=== PATIENT | male | born 1955 | race Caucasian/White ===

== ENCOUNTER 2021-11-06 18:47 | Emergency (ER) | payer OTHER, MEDICAID ==
[~2021-11-06] VITALS: Ht 167.6 cm; Wt 77.1 kg
[2021-11-06 18:50] VITALS: BP 137/82
--- NOTE | 2021-11-06 18:50 | NUR ---
PT PETER JEROME, TO 02. Addendum: 11/06/21 at 1855 by MATTHIAS ALS NOT PETER
[2021-11-06] MEDS ORDERED: NACL 0.9% 1,000 ML IV ONE (19:05)
--- NOTE | 2021-11-06 19:20 | NUR ---
Patient BIB by PETER. C/O Alcohol intoxication x today. Patient reported, was drinking 3 cans of beer today, felt weakness. Hx Alcoholic, HTN. A/O,X4, general weakness, shakiness bileral hands, place patient on salt lifter and pulse ox.
--- NOTE | 2021-11-06 19:23 | NUR ---
Dr. Adler examining patient.
--- NOTE | 2021-11-06 19:32 | NUR ---
Urine sample collected and sent to lab.
[2021-11-06 20:25] LABS: BARBITURATE, URINE NEGATIVE ng/ml (NEG <=200); BENZODIAZEPINE, URINE NEGATIVE ng/mL (NEG <=200); CANNABINOID, URINE NEGATIVE ng/mL (NEG <=50); COCAINE, URINE NEGATIVE ng/mL (NEG <=300); OPIATE, URINE NEGATIVE ng/mL (NEG <=2000); PHENCYCLIDINE SCREEN,URINE NEGATIVE ng/mL (NEG <=25)
[2021-11-06 20:30] LABS: BASOPHILS % (AUTO) 0.5 % (0.0-2.0); EOSINOPHILS # (AUTO) 0.1 K/uL (0-0.4); EOSINOPHILS % (AUTO) 3.2 % (0.0-4.0); HEMATOCRIT 32.4 % (36-52); HEMOGLOBIN 10.6 g/dL (12.0-18.0); LYMPHOCYTES # (AUTO) 2.4 K/uL (2.0-11.5); LYMPHOCYTES % (AUTO) 53.2 % (20.5-51.1); MEAN CORPUSCULAR HEMOGLOBIN 30 pg (27-31); MEAN CORPUSCULAR HGB CONC 33 g/dL (33-37); MEAN CORPUSCULAR VOLUME 90.7 fL (80-94); MONOCYTES # (AUTO) 0.4 K/uL (0.8-1.0); MONOCYTES % (AUTO) 8.1 % (1.7-9.3); NEUTROPHILS # (AUTO) 1.6 K/uL (1.8-7.7); PLATELET COUNT (AUTO) 75 K/uL (140-450); RED BLOOD CELL COUNT(AUTO) 3.58 MIL/uL (4.20-6.10); RED CELL DISTRIBUTION WIDTH 19.7 % (11.6-13.7); WHITE BLOOD COUNT (AUTO) 4.4 K/uL (4.8-10.8)
[2021-11-06 21:07] LABS: ALBUMIN 3.3 g/dL (3.4-5.0); ANION GAP 12.3 (8-16); ASPARTATE AMINOTRANSFERASE 58 U/L (15-37); CARBON DIOXIDE 25.3 mmol/L (21-32); CHLORIDE 108 mmol/L (98-107); CREATININE 0.8 mg/dL (0.6-1.3); GFR ARICAN-AMERICAN 125 mL/min (>90); GLUCOSE 105 mg/dL (74-106); POTASSIUM 3.6 mmol/L (3.5-5.1); SODIUM SERUM 142 mmol/L (136-145); TOTAL BILIRUBIN 0.4 mg/dL (0.0-1.0); UREA NITROGEN, BLOOD 12 mg/dL (7-18)
[2021-11-06 21:08] LABS: SALICYLATE < 2.8 mg/dL (2.8-20.0)
[2021-11-06 21:09] LABS: ACETAMINOPHEN < 0.5 ug/ml (10-30)
[2021-11-06] MEDS ORDERED: FOLIC ACID 5 MG/ML SYR IM ONE (21:25)
[2021-11-06] MEDS ORDERED: THIAMINE 200 MG/2 ML VIAL IM ONE (21:25)
[2021-11-06] MEDS ORDERED: MAG SULF 2000 MG/WATER PREMIX 50 ML IV ONE (21:25)
[2021-11-06] MEDS ORDERED: MULTIVITAMIN-12 10 ML in NACL 0.9% 1,000 ML IV ONE (21:25)
[2021-11-06] MEDS ORDERED: MULTIVITAMIN-12 10 ML VIAL IV ONE (21:29)
--- NOTE | 2021-11-06 21:55 | NUR ---
Patient refused IM medications, Dr. Adler notified.
--- NOTE | 2021-11-06 22:31 | NUR ---
Provided blankets as request.
--- NOTE | 2021-11-06 22:52 | NUR ---
Patient appears to be resting comfortably in bed. Vital Signs within normal limits. Respirations even and unlabored.
--- NOTE | 2021-11-07 00:12 | NUR ---
Patient appears to be resting comfortably in bed. Vital Signs within normal limits. Respirations even and unlabored.
--- NOTE | 2021-11-07 02:41 | NUR ---
Patient is sleeping, no acute distress.
--- NOTE | 2021-11-07 04:11 | NUR ---
Patient is sleeping, no acute distress.
[2021-11-07 05:00] VITALS: BP 124/80
--- NOTE | 2021-11-07 05:00 | NUR ---
Patient discharged with v/s stable. Written and verbal after care instructions given and explained. Patient verbalized understanding. Ambulatory with steady gait. All questions addressed prior to discharge. Advised to follow up with PMD.
== END 2021-11-07 05:00 | disposition home or self-care (01) ==
LOC: MED 18:47
DX: F10.129 Alcohol abuse with intoxication, unspecified (principal); D64.9 Anemia, unspecified; I10 Essential (primary) hypertension; E11.9 Type 2 diabetes mellitus without complications; Z98.890 Other specified postprocedural states; Z59.00 Homelessness unspecified
CPT/HCPCS: 36415; 71045; 80053; 80305; 85025; 93005; 96361; 96365; 96366; 96368; 99285; A9153; G0480; G0482; J3411; J3475; J3490; J7030; Q0092

== ENCOUNTER 2021-11-21 20:22 | Emergency (ER) | payer OTHER, MEDICAID ==
[~2021-11-21] VITALS: Ht 165.1 cm; Wt 77.1 kg
[2021-11-21 20:25] VITALS: BP 149/66
--- NOTE | 2021-11-21 20:30 | NUR ---
PATIENT W/C ASSIST TO LOBBY
[2021-11-22] MEDS ORDERED: ACETAMINOPHEN EXTRA STRENGTH 500 MG TAB PO ONE (00:35)
[2021-11-22 01:40] VITALS: BP 138/70
--- NOTE | 2021-11-22 01:40 | NUR ---
PATIENT REFUSED TO TAKE D/C PAPERWORK AND REFUSED TO SIGN D/C PAPERS. D/C INSTRUCTIONS GIVEN.
== END 2021-11-22 01:40 | disposition home or self-care (01) ==
LOC: MED 20:22
DX: G89.29 Other chronic pain (principal); M79.604 Pain in right leg; M79.605 Pain in left leg; F10.129 Alcohol abuse with intoxication, unspecified; F19.10 Other psychoactive substance abuse, uncomplicated; I10 Essential (primary) hypertension; Z59.00 Homelessness unspecified
CPT/HCPCS: 73562; 99284